=== PATIENT | male | born 1965 | race Caucasian/White ===

== ENCOUNTER 2018-04-01 11:34 | Observation (INO) | payer MEDICAID, OTHER ==
[2018-04-01] MEDS ORDERED: LORazepam INJ* 2 MG/ML 1 ML VIAL IV ONE (11:39)
--- NOTE | 2018-04-01 12:04 | RAD ---
HISTORY: new onset seizure,tachypnea, possible aspiration COMPARISONS: August 05, 2007 TECHNIQUE: Multiple contiguous axial CT scans were obtained of the head without intravenous contrast. FINDINGS: HEMORRHAGE/INFARCT: There is no hemorrhage or acute infarct. MASSES/SHIFT: There is no mass or shift. EXTRA-AXIAL SPACES: There are no extra-axial fluid collections. SULCI AND VENTRICLES: The sulci and ventricles are normal in size and position for the patient's stated age. CEREBRUM: There are no focal parenchymal abnormalities. BRAINSTEM: There are no focal parenchymal abnormalities. CEREBELLUM: There are no focal parenchymal abnormalities. VESSELS: The vessels are grossly normal. PARANASAL SINUSES: The paranasal sinuses are clear. ORBITS: The orbits are unremarkable. BONES AND SOFT TISSUE: No bone or soft tissue abnormalities are noted. OTHER: None IMPRESSION: NO ACUTE INTRACRANIAL PATHOLOGY.
--- NOTE | 2018-04-01 12:26 | RAD ---
INDICATION: No onset generalized seizure. COMPARISON: Comparison is made with a prior chest x-ray study from July 12, 2007. TECHNIQUE: AP and lateral views of the chest were obtained. FINDINGS: The heart is within normal limits in size. Mediastinal and hilar contours appear within normal limits. The lungs are underinflated. There is a linear density in the left lower lobe suggestive of subsegmental atelectasis or scarring. The lungs are otherwise clear. No pleural effusion is seen. IMPRESSION: NO EVIDENCE FOR ACTIVE CARDIOPULMONARY DISEASE.
[2018-04-01 12:28] LABS: ABS Basophils 0 10^3/ul (0-0.2); ABS Eosinophils 0 10^3/ul (0-0.6); ABS Lymphocytes 0.5 10^3/ul (1.0-4.8); ABS Monocytes 0.6 10^3/ul (0-0.8); ABS Neutrophils 10.2 10^3/ul (1.5-7.7); ABS Nucleated RBC 0 10^3/ul; Eosinophil % 0 % (0-6); Hematocrit 41 % (42-52); Hemoglobin 14.1 g/dl (14.0-18.0); Lymphocyte % 4.5 % (25-47); Mean Corpuscular HGB Conc 34 g/dl (31-36); Mean Corpuscular Hemoglobin 34 pg (27-31); Mean Corpuscular Volume 99 fL (80-94); Mean Platelet Volume 8.2 um3 (7.4-10.4); Nucleated Red Blood Cells % 0; Platelet Count 109 10^3/ul (150-450); Red Blood Count 4.13 10^6/ul (4.00-5.40); Red Cell Distribution Width 15 % (10.5-15); White Blood Count 11.3 10^3/ul (3.5-10.8)
[2018-04-01 12:37] LABS: INR 0.82 (0.77-1.02)
[2018-04-01 12:43] LABS: EGFR Non-African American 59.6 (>60)
[2018-04-01] MEDS ORDERED: NF:Umeclidin/Vilant 62.5 MDI 62.5/25 mcg 14 INH ELLIPTA DEVICE INH PRN (15:30)
[2018-04-01] MEDS ORDERED: Acetaminophen TAB* 325 MG PO PRN (15:31)
[2018-04-01] MEDS ORDERED: Thiamine IV* 100 MG/ML 2 ML VIAL IM ONE ×2 (15:31→20:00)
[2018-04-01] MEDS ORDERED: Mouth Piece, Nicotine* 1 EACH CARTRIDGE INH PRN (15:32)
[2018-04-01] MEDS ORDERED: Nicotine Inhaler* 10 MG AMP INH PRN (15:32)
[2018-04-01] MEDS ORDERED: PROCHLORPERAZINE INJ 5 MG/ML 2 ML VIAL IV PRN (15:32)
[2018-04-01] MEDS ORDERED: Albuterol/Ipratropium NEB.SOL* Albuterol 2.5 MG/Ipratropium 0.5 MG 3 ML INH PRN (15:32)
[2018-04-01] MEDS ORDERED: LORazepam TAB(*) 1 MG PO SCH (16:00)
[2018-04-01] MEDS ORDERED: LORazepam INJ* 2 MG/ML 1 ML VIAL IV SCH (16:00)
--- NOTE | 2018-04-01 17:07 | ED ---
Jana Rod Jacob, scribed for [place] HarmonyJose Ramon MD on 04/01/18 at 1205 . Neurological HPI - HPI Summary HPI Summary: Pt is a 52 y/o M brought in by EMS due to collapse and full-body seizurelasting about 2 minutes, according to neighbors. Upon arrival, EMS reports pt was alert but slightly warm and sweaty. In the room, pt states that he still feels hot. He reports feeling fine this morning and was watching TV. Pt does not recall walking across the yard. On triage, denies pain. He denies recent sickness, YOUNG, and abdominal pain. He reports not taking any medications and NKDA. In the room , pt admits to heavy regular alcohol use, deniesa any significant past medical history and has never tried to detox from alcohol. - History of Current Complaint Chief Complaint: EDSeizure Stated Complaint: SEIZURE Time Seen by Provider: 04/01/18 11:38 Hx Obtained From: Patient Onset/Duration: Sudden Onset Timing: Sudden Onset - suddenly collapsed and seized according to neighbors Number of Seizures: 1 Pain Intensity: 0 Pain Scale Used: 0-10 Numeric - 0/10 Character: Other: - Upon EMS arrival, pt was diaphoretic and warm. In room, pt reports still feeling warm but denies other symptoms. Syncope Context: Witnessed - neighbors Aggravating: Nothing Alleviating: Nothing Associated Signs and Symptoms: Positive: Memory Loss - does not recall walking across yard, Diaphoresis - upon EMS arrival - Allergy/Home Medications Allergies/Adverse Reactions: Allergies Allergy/AdvReac Type Severity Reaction Status Date / Time No Known Allergies Allergy Verified 04/01/18 11:38 Home Medications: Home Medications Umeclidin/Vilant 62.5 MDI(NF) [ANORO 62.5/25 Ellipta DEVICE (NF)] 2 aer IN QAM PRN 04/01/18 [History Confirmed 04/01/18] PMH/Surg Hx/FS Hx/Imm Hx GI History: Reports: Hx Gastroesophageal Reflux Disease History: Reports: Other Problems/Disorders - Hepatitis NOS Infectious Disease History: No Infectious Disease History: Denies: Traveled Outside the [place] in Last 30 Days - Family History Known Family History: Negative: Blood Disorder - Social History Alcohol Use: Daily Substance Use Type: Reports: Marijuana Smoking Status (MU): Current Every Day Smoker Review of Systems Positive: Skin Diaphoresis - upon EMS arrival, Other - states he feels warm Negative: Abdominal Pain Positive: Syncope - experienced full body seizure according to neighbors. Negative: Headache All Other Systems Reviewed And Are Negative: Yes Physical Exam - Summary Physical Exam Summary: Appearance: Well-appearing, Well-nourished, lying in bed comfortably Skin: Warm, dry, no obvious rash Eyes: sclera anicteric, no conjunctival pallor ENT: mucous membranes moist, pharynx appears normal Neck: Supple, nontender Respiratory: Clear to auscultation, no signs of respiratory distress Cardiovascular: Normal S1, S2. No murmurs. Normal distal pulses in tibial and radial bilaterally. Abdomen: Soft, nontender, normal active bowel sounds present Musculoskeletal: Normal, Strength/ROM Intact Neurological: A&Ox3, somewhat somnolent but easily arousable and can engage in conversation, mentation is normal, speech is fluent and appropriate. No tremor noted. Psychiatric: affect is normal, does not appear anxious or depressed Triage Information Reviewed: Yes Vital Signs On Initial Exam: Initial Vitals Temp Pulse Resp BP Pulse Ox 98.8 F 83 20 154/96 97 04/01/18 11:34 04/01/18 11:34 04/01/18 11:34 04/01/18 11:34 04/01/18 11:34 Vital Signs Reviewed: Yes - [place] Coma Scale Best Eye Response: 4 - Spontaneous Best Motor Response: 6 - Obeys Commands Best Verbal Response: 5 - Oriented Coma Scale Total: 15 Diagnostics - Vital Signs Vital Signs Temp Pulse Resp BP Pulse Ox 04/01/18 11:34 98.8 F 83 20 154/96 97 - Laboratory Lab Results: Lab Results 04/01/18 04/01/18 04/01/18 Range/Units 12:04 12:04 12:04 WBC 11.3 H (3.5-10.8) 10^3/ul RBC 4.13 (4.00-5.40) 10^6/ul Hgb 14.1 (14.0-18.0) g/dl Hct 41 L (42-52) % MCV 99 H (80-94) fL MCH 34 H (27-31) pg MCHC 34 (31-36) g/dl RDW 15 (10.5-15) % Plt Count 109 L (150-450) 10^3/ul MPV 8.2 (7.4-10.4) um3 Neut % (Auto) 90.2 H (38-83) % Lymph % (Auto) 4.5 L (25-47) % Kendall % (Auto) 5.1 (0-7) % Eos % (Auto) 0 (0-6) % Baso % (Auto) 0.2 (0-2) % Absolute Neuts (auto) 10.2 H (1.5-7.7) 10^3/ul Absolute Lymphs (auto) 0.5 L (1.0-4.8) 10^3/ul Absolute Monos (auto) 0.6 (0-0.8) 10^3/ul Absolute Eos (auto) 0 (0-0.6) 10^3/ul Absolute Basos (auto) 0 (0-0.2) 10^3/ul Absolute Nucleated RBC 0 10^3/ul Nucleated RBC % 0 INR (Anticoag Therapy) 0.82 (0.77-1.02) Sodium 138 (135-145) mmol/L Potassium 3.6 (3.5-5.0) mmol/L Chloride 101 (101-111) mmol/L Carbon Dioxide 15 L (22-32) mmol/L Anion Gap 22 H (2-11) mmol/L BUN 13 (6-24) mg/dL Creatinine 1.27 H (0.67-1.17) mg/dL Est GFR ( Amer) 72.1 (>60) Est GFR (Non-Af Amer) 59.6 (>60) BUN/Creatinine Ratio 10.2 (8-20) Glucose 152 H (70-100) mg/dL Lactic Acid (0.5-2.0) mmol/L Calcium 9.2 (8.6-10.3) mg/dL Magnesium 2.4 (1.9-2.7) mg/dL Total Bilirubin 1.30 H (0.2-1.0) mg/dL AST 38 (13-39) U/L ALT 44 (7-52) U/L Alkaline Phosphatase 68 (34-104) U/L Total Protein 7.5 (6.4-8.9) g/dL Albumin 4.2 (3.2-5.2) g/dL Globulin 3.3 (2-4) g/dL Albumin/Globulin Ratio 1.3 (1-3) Serum Alcohol < 10 (<10) mg/dL 04/01/18 Range/Units 12:04 WBC (3.5-10.8) 10^3/ul RBC (4.00-5.40) 10^6/ul Hgb (14.0-18.0) g/dl Hct (42-52) % MCV (80-94) fL MCH (27-31) pg MCHC (31-36) g/dl RDW (10.5-15) % Plt Count (150-450) 10^3/ul MPV (7.4-10.4) um3 Neut % (Auto) (38-83) % Lymph % (Auto) (25-47) % Kendall % (Auto) (0-7) % Eos % (Auto) (0-6) % Baso % (Auto) (0-2) % Absolute Neuts (auto) (1.5-7.7) 10^3/ul Absolute Lymphs (auto) (1.0-4.8) 10^3/ul Absolute Monos (auto) (0-0.8) 10^3/ul Absolute Eos (auto) (0-0.6) 10^3/ul Absolute Basos (auto) (0-0.2) 10^3/ul Absolute Nucleated RBC 10^3/ul Nucleated RBC % INR (Anticoag Therapy) (0.77-1.02) Sodium (135-145) mmol/L Potassium (3.5-5.0) mmol/L Chloride (101-111) mmol/L Carbon Dioxide (22-32) mmol/L Anion Gap (2-11) mmol/L BUN (6-24) mg/dL Creatinine (0.67-1.17) mg/dL Est GFR ( Amer) (>60) Est GFR (Non-Af Amer) (>60) BUN/Creatinine Ratio (8-20) Glucose (70-100) mg/dL Lactic Acid 10.1 H* (0.5-2.0) mmol/L Calcium (8.6-10.3) mg/dL Magnesium (1.9-2.7) mg/dL Total Bilirubin (0.2-1.0) mg/dL AST (13-39) U/L ALT (7-52) U/L Alkaline Phosphatase (34-104) U/L Total Protein (6.4-8.9) g/dL Albumin (3.2-5.2) g/dL Globulin (2-4) g/dL Albumin/Globulin Ratio (1-3) Serum Alcohol (<10) mg/dL Result Diagrams: 04/01/18 12:04 04/01/18 12:04 Lab Statement: Any lab studies that have been ordered have been reviewed, and results considered in the medical decision making process. - Radiology CXR Xray Interpretation: No Acute Changes Radiology Interpretation Completed By: Radiologist - No evidence for active cardiopulmonary disease. This report was reviewed by ED physician. - CT CT Head CT Interpretation: No Acute Changes CT Interpretation Completed By: Radiologist - No acute intracranial pathology. This report was reviewed by ED physician. - EKG 1213 Cardiac Rate: NL EKG Rhythm: Sinus Rhythm EKG Comparison: Other - NSR at 66 BPM, P waves, QRS complex, and T waves are within normal limits, T waves and intervals are normal, no ischemic changes. This is a normal EKG Re-Evaluation - Re-Evaluation First Eval Re-Evaluation Time: 15:00 Comment: discussed care of patient, will be admitted Course/Dx - Course Course Of Treatment: 52 y/o alcoholic man here after suffering first generalized tonic/clonic seizure, likely related to alcohol abuse/withdrawal. He is amenable for admission for monitored detox. Ativan given IV, further anticonvulsant at discretion of admitting physician. - Diagnoses Provider Diagnoses: Seizure, Alcoholism - Physician Notifications Instructed by Provider To: Admit As Inpatient Discharge - Sign-Out/Discharge Documenting (check all that apply): Discharge/Admit/Transfer - Discharge Plan Condition: Fair Disposition: ADMITTED TO [facility] Referrals: Jim Reid MD [Medical Doctor] - - Billing Disposition and Condition Condition: FAIR Disposition: Admitted to [facility] The documentation as recorded by the Jana noble Jacob accurately reflects the service I personally performed and the decisions made by me, Jose Ramon Barraza MD.
[2018-04-01] MEDS: LORazepam INJ* 2 MG/ML 1 ML VIAL IV SCH (18:32)
[2018-04-01] MEDS: Nicotine PATCH 21 MG/24 HR* PATCH TRANSDERM SCH (18:34)
[2018-04-01] MEDS ORDERED: Gadoteridol* (CONTRAST) 279.3 MG/ML 10 ML IV ONE (19:05)
--- NOTE | 2018-04-01 19:46 | RAD ---
INDICATION: Seizures COMPARISON: CT brain April 01, 2018 TECHNIQUE: sagittal T1 FLAIR, axial diffusion, axial T1 FLAIR, axial T2, axial T2 FLAIR, and SWI images were acquired. Additional multiplanar T1-weighted postcontrast images were acquired following the administration of 15 mL ProHance. Thin section imaging through the temporal lobes was performed as well FINDINGS: Craniocervical junction: The craniocervical junction appears normal. Ventricles/sulci: The ventricles and cisterns are normal in size and configuration for age. Brain parenchyma: There are scant, scattered T2-weighted hyperintensities likely reflecting the sequela of prior microvascular insult. There are no acute focal parenchymal abnormalities. There is no evidence of intracranial mass or mass effect. The diffusion weighted images show no evidence of acute ischemia. Intracranial hemorrhage: There is no intracranial hemorrhage. Extra-axial spaces: There are no extra-axial fluid collections or masses. Orbits: There are no MR abnormalities of the orbital structures. Paranasal sinuses/mastoid: There are findings of mild chronic pansinusitis. Mucous retention cysts or polyps are also present in the left maxillary antrum.. Vascular: No abnormalities are seen. Other: None IMPRESSION: SCATTERED T2-WEIGHTED HYPERINTENSITIES. THE EXAMINATION IS OTHERWISE UNREMARKABLE..
[2018-04-01] MEDS ORDERED: Nicotine Patch Removal NOTE FOLLOW UP SCH (21:00)
[2018-04-01] MEDS: Heparin VIAL(*) 5000 UNITS/ML VIAL (FIVE THOUSAND) SUBCUT SCH (21:05)
--- NOTE | 2018-04-01 22:56 | HP ---
CC: Dr. Nj * HISTORY AND PHYSICAL: DATE OF ADMISSION: 04/01/18 TIME OF EVALUATION: 3 p.m. PRIMARY CARE PROVIDER: The patient has no primary care provider. CONSULTING NEUROLOGIST: Dr. Nj. CHIEF COMPLAINT: "They told me I had a seizure." HISTORY OF PRESENT ILLNESS: Mr. Clements is a 52-year-old male with a past medical history of COPD, alcohol abuse, who was brought into the emergency room after sustaining a seizure. The patient states he was feeling his usual this morning. Then, he was walking to his cousin's home and the next thing, he remembers after that is EMS crew taking care of him. As per ED provider report, the patient was seen walking by a neighbor and had a witnessed seizure, so EMS was called. The patient was lethargic on arrival, but now appears to be back at his baseline. He denies headache, nausea, vomiting, dizziness, chest pain, palpitations, fever, or any other complaints. The patient states he never had a seizure before. He states that he drinks a liter of vodka a day. Last drink was yesterday. He actually had no breakfast or any alcohol today. PAST MEDICAL HISTORY: 1. Alcohol abuse. The patient states that his last stay in rehab was in October 2017 at [facility]. He was sober for a month and a half. 2. COPD. 3. Tobacco abuse. MEDICATION LIST: Anoro 62.5/25 two puffs inhaled daily as needed for shortness of breath. ALLERGIES: No known drug allergies. FAMILY HISTORY: Mother had a history of heart disease. Father of cancer, but he does not know the primary. SOCIAL HISTORY: The patient smokes a pack a day since he was 10 years old. He drinks a liter of vodka a day sometimes a couple of beers too. He smokes weed, but denies using any other drugs. Surrogate decision maker is his cousin, Vinnie Clements. Phone number is [phone]. REVIEW OF SYSTEMS: A 14-point review of systems was performed and all the pertinent negative and positive findings are in the HPI. PHYSICAL EXAMINATION GENERAL: The patient is a middle-aged gentleman, lying in the ED stretcher, in no acute distress. VITAL SIGNS: Temperature 98.8, heart rate is 69, respiratory rate is 20, oxygen saturation is 100% on room air, blood pressure is 146/94. HEENT: Pupils are equal. Moist mucous membranes. CHEST: Breath sounds bilaterally. No added sounds. CVS: Normal S1, S2. Regular rate and rhythm. ABDOMEN: Soft. Bowel sounds are present. EXTREMITIES: No edema. NEURO: He is alert and oriented x3. Able to move all 4 extremities. Face is symmetric. There are no focal neuro deficits. LABORATORY AND IMAGING DATA: The patient had a CBC that showed WBC of 11.3, hemoglobin of 14.1, MCV of 99, MCH of 34, platelet count of 109. INR is 0.82. Chemistry showed a sodium of 138, potassium of 3.6, chloride of 101, bicarb 15, anion gap of 22, BUN of 13, creatinine of 1.27, glucose of 152, lactic acid of 10.1, calcium of 9.2, magnesium of 2.4. LFTs were normal except for a total bilirubin of 1.3. Serum alcohol level is less than 10. CT of the brain without contrast showed no acute intracranial pathology. Chest x-ray showed no evidence for active cardiopulmonary disease. EKG done on 04/01/18 at 1213 showed normal sinus rhythm at 66 beats per minute with no ST-T changes and borderline QT prolongation. ASSESSMENT AND PLAN: Mr. Clements is a 52-year-old male with a past medical history of alcohol abuse, chronic obstructive pulmonary disease, tobacco abuse, who presented to the emergency room after a seizure. 1. Seizure. The patient is not showing signs of withdrawal at this time as he is not tachycardic. He is not hypertensive. He does not have any tremors, but his last drink was 24 hours ago and he had a seizure. He will be admitted to the telemetry floor. We are going to check an MRI of the brain with and without contrast with seizure protocol. He is going to have an EKG and he will be seen in consultation by Neurology (Dr. Nj). We are going to monitor him with neurological checks and he will be placed on seizure precautions. We are going to put him on lorazepam taper for seizure prophylaxis. It is unclear at this time if this seizure is related to alcohol or if this may be a primary epilepsy. 2. Chronic obstructive pulmonary disease is stable. We will continue bronchodilators. 3. Tobacco abuse. The patient will receive nicotine supplementation. 4. DVT prophylaxis. The patient has a score of 2 on the DVT Prophylaxis Risk Assessment Guide and he will be started on subcutaneous heparin. 5. Code status is full. TIME SPENT: Approximately 45 minutes were spent with the patient interview, medical records review, physical examination to complete this admission, more than half of this time was spent [id number] with the patient and coordination of care. [id number]/[facility] #: [id number] MTDD
[2018-04-02] MEDS: LORazepam INJ* 2 MG/ML 1 ML VIAL IV SCH (01:54)
[2018-04-02] MEDS: Heparin VIAL(*) 5000 UNITS/ML VIAL (FIVE THOUSAND) SUBCUT SCH (05:31)
[2018-04-02 05:50] LABS: Urine Appearance Clear; Urine Blood Negative (Negative); Urine Color Yellow; Urine Ketones Negative (Negative); Urine Protein Negative (Negative); Urine Specific Gravity 1.019 (1.010-1.030); Urine Urobilinogen Negative (Negative)
[2018-04-02 07:23] LABS: Hematocrit 39 % (42-52); Hemoglobin 13.8 g/dl (14.0-18.0); Mean Corpuscular HGB Conc 35 g/dl (31-36); Mean Corpuscular Hemoglobin 35 pg (27-31); Mean Corpuscular Volume 99 fL (80-94); Red Blood Count 3.95 10^6/ul (4.00-5.40); Red Cell Distribution Width 15 % (10.5-15); White Blood Count 6.7 10^3/ul (3.5-10.8)
[2018-04-02 07:34] LABS: EGFR Non-African American 84.3 (>60)
[2018-04-02 08:28] LABS: ABS Basophils 0 10^3/ul (0-0.2); ABS Eosinophils 0.1 10^3/ul (0-0.6); ABS Lymphocytes 1.4 10^3/ul (1.0-4.8); ABS Monocytes 0.4 10^3/ul (0-0.8); ABS Neutrophils 4.7 10^3/ul (1.5-7.7); ABS Nucleated RBC 0 10^3/ul; Lymphocyte % 21.1 % (25-47); Mean Platelet Volume 8.4 um3 (7.4-10.4); Nucleated Red Blood Cells % 0; Platelet Count 95 10^3/ul (150-450)
[2018-04-02] MEDS ORDERED: Multivitamins/Minerals TAB PO SCH (09:00)
[2018-04-02] MEDS ORDERED: Thiamine TAB* 100 MG TAB PO SCH (09:00)
[2018-04-02] MEDS ORDERED: Folic Acid TAB* 1 MG PO SCH (09:00)
[2018-04-02] MEDS ORDERED: chlordiazePOXIDE CAP* 25 MG PO ONE (09:03)
--- NOTE | 2018-04-02 09:15 | PN ---
"Progress Note - Progress Note Date of Service: 04/02/18 Note: Search Terms: kendra wheeler, 1965 Search Date: 04/02/2018 09:08:06 AM The Drug Utilization Report below displays all of the controlled substance prescriptions, if any, that your patient has filled in the last twelve months. The information displayed on this report is compiled from pharmacy submissions to the Department, and accurately reflects the information as submitted by the pharmacies. This report was requested by: Zane Disla | Reference #: [id number] There are no results for the search terms that you entered."
[2018-04-02 09:36] VITALS: BP 152/83
[2018-04-02] MEDS: Nicotine PATCH 21 MG/24 HR* PATCH TRANSDERM SCH (09:53)
[2018-04-02] MEDS ORDERED: chlordiazePOXIDE CAP* 25 MG PO SCH (14:00)
--- NOTE | 2018-04-02 22:01 | DS ---
DISCHARGE SUMMARY: DATE OF ADMISSION: DATE OF DISCHARGE: 04/02/18 HOSPITAL COURSE: This 52-year-old man presented with a seizure. He did not drink as much alcohol the day before, said it was a hot day and he did not feel like drinking. He was in his usual state of health. He walked to his cousin's home, and the next thing he remembers there was an EMS crew taking care of him. The patient had a witnessed seizure. His laboratory data were very characteristic of seizure with lactic acidosis. The metabolic acidosis resolved completely after a short period. The lactate level was not repeated. He had no further seizures in the hospital. He was given several doses of lorazepam. I notified the social work department of his problem and they should be seeing him before discharge. He was not particularly interested in treatment. I told him he need to abstain from alcohol for a period of time as he was going to be getting some medication at home. On the day of discharge, he got 50 mg of chlordiazepoxide in the morning. He was given a prescription for 25 t.i.d. 3 capsules. We will arrange for him to see a primary care provider as well. FINAL DIAGNOSES: 1. Alcohol abuse with alcohol withdrawal seizure. 2. Chronic obstructive pulmonary disease. 3. Tobacco abuse. DISCHARGE MEDICATIONS: 1. Chlordiazepoxide 25 mg t.i.d., dispensed 3. 2. Thiamine 100 mg daily. 3. Umeclidinium/vilanterol 62.5/25 two puffs daily. [id number]/[facility] #: [id number] MTDD
--- NOTE | 2018-04-03 04:37 | EEG ---
ELECTROENCEPHALOGRAPHY: DATE OF STUDY: 04/02/18 - ROOM #449 PATIENT OF: Dr. Matute. CLINICAL PROBLEM: This is a 52-year-old man being evaluated for a convulsion yesterday. Of note, the patient is alcoholic. MEDICATIONS: Include: 1. Ativan. 2. Heparin. 3. Folic acid. 4. Theragran. 5. Tylenol. REPORT: With the patient awake, background cerebral activity consists of moderate amplitude posterior dominant 9 Hz rhythm, which attenuates with eye opening and reappears with eye closure. There is some admixed beta activity noted during this tracing. The patient never falls asleep. No activation procedures are performed. No epileptiform potentials, focal abnormalities, or major asymmetries of background are noted. CLINICAL IMPRESSION: This awake EEG is within normal limits. [id number]/[facility] #: [id number] MTDD
== END 2018-04-02 11:29 | disposition home or self-care (01) ==
LOC: ED 11:34 → MEDTELE 15:27
PROVIDERS: ADMIT Internal Medicine; ATTEND Internal Medicine
DX: F10.239 Alcohol dependence with withdrawal, unspecified (principal); G40.509 Epileptic seizures related to external causes, not intractable, without status epilepticus; J44.9 Chronic obstructive pulmonary disease, unspecified; Z72.0 Tobacco use; Z79.899 Other long term (current) drug therapy
CPT/HCPCS: 36415; 70450; 70553; 71046; 80048; 80053; 80320; 81003; 83605; 83735; 85025; 85060; 85610; 93005; 95819; 96374; 96375; 99284; 99406; A9270-GY; A9579; G0378; G0480; J1644; J2060; J3411

== ENCOUNTER 2021-10-28 22:43 | Inpatient (IN) ==
[2021-10-29] MEDS ORDERED: Lorazepam PYXIS KEY PRN ×3 (01:04→05:03)
[2021-10-29 01:37] LABS: INR 1.53 (0.86-1.15)
[2021-10-29] MEDS ORDERED: LORazepam 2 mg VIAL 1 ml IV PUSH ONE ×2 (01:40→05:03)
[2021-10-29] MEDS ORDERED: Ondansetron 4 mg VIAL 2 MG/ML 2 ml VIAL IV PRN (01:40)
[2021-10-29] MEDS ORDERED: Dexamethasone IV 6 MG in NS 0.9% 50 ML 50 ML IVPB ONE (01:43)
[2021-10-29 01:44] LABS: Hematocrit 47 % (42-52); Hemoglobin 16.1 g/dL (14.0-18.0); Mean Corpuscular HGB Conc 35 g/dL (31-36); Mean Corpuscular Hemoglobin 37 pg (27-31); Mean Corpuscular Volume 107 fL (80-94); Mean Platelet Volume 8.6 fL (7.4-10.4); Platelet Count 114 10^3/uL (150-450); Red Blood Count 4.34 10^6 /uL (4.18-5.48); Red Cell Distribution Width 14 % (10-15); White Blood Count 4.1 10^3/uL (3.5-10.8)
[2021-10-29 01:50] LABS: ALT 42 U/L (7-52); AST 58 U/L (13-39); Albumin 3.2 g/dL (3.2-5.2); Albumin/Globulin Ratio 1.1 (1-3); Alkaline Phosphatase 41 U/L (35-149); Anion Gap 13 mmol/L (2-11); Blood Urea Nitrogen 25 mg/dL (6-24); C Reactive Protein 244.14 mg/L (<8.01); CO2 Carbon Dioxide 21 mmol/L (22-32); Calcium 7.8 mg/dL (8.6-10.3); Chloride 103 mmol/L (101-111); Globulin 2.9 g/dL (2-4); Glucose 148 mg/dL (70-100); Magnesium 1.4 mg/dL (1.9-2.7); Potassium 3.7 mmol/L (3.5-5.0); Sodium 137 mmol/L (135-145); Total Protein 6.1 g/dL (6.4-8.9); eGFR CKD-EPI 35.1 (>60)
[2021-10-29 01:52] LABS: Troponin I 0.01 ng/mL (<0.03)
[2021-10-29] MEDS ORDERED: D5LR 1000 ml BAG 1,000 ML IV SCH (02:00)
[2021-10-29 02:04] LABS: TSH Ultra Thyroid Stim Horm 0.33 mcIU/mL (0.34-5.60)
[2021-10-29] MEDS ORDERED: Magnesium Sulf 4 GM/100 ML IV 4,000 MG/100 ML BAG IVPB ONE (02:25)
[2021-10-29] MEDS ORDERED: Remdesivir 100 mg Vial 200 MG in NS 0.9% 250 ml 210 ML IV ONE (02:31)
[2021-10-29] MEDS ORDERED: Lactated Ringers 500 ml BAG 500 ML IV ONE (02:46)
[2021-10-29] MEDS ORDERED: Azithromycin 500 mg/250 ml NS 500 MG/250 ML BAG IVPB SCH (03:00)
[2021-10-29] MEDS ORDERED: Lactated Ringers 1000 ml BAG 1,000 ML IV SCH (03:00)
[2021-10-29 03:04] LABS: Total Bilirubin 3.7 mg/dL (0.2-1.0)
[2021-10-29 03:17] LABS: Folate > 20.00 ng/mL (5.90-24.80)
[2021-10-29 03:18] LABS: Vitamin B12 766 pg/mL (180-914)
[2021-10-29] MEDS: Albuterol HFA INHALER 8 gm MDI INH PRN (04:15)
[2021-10-29] MEDS: LORazepam 2 mg VIAL 1 ml IV PUSH PRN ×2 (04:16→09:13)
[2021-10-29] MEDS ORDERED: methylPREDNISolone 125 mg 2 ML VIAL IV ONE (04:27)
[2021-10-29] MEDS ORDERED: Piperacillin/Tazobac ADVAN 3.375 GM in NS 0.9% 100 ml BAG 100 ML IV ONE (04:28)
[2021-10-29] MEDS ORDERED: Furosemide 20 mg/2 ml IV VIAL IV ONE (04:28)
[2021-10-29] MEDS ORDERED: Zosyn per Pharmacy NOTE FOLLOW UP SCH (05:00)
[2021-10-29] MEDS: SPIRIVA Respimat (tiotropium) 2.5 mcg/inh Inhaler INH SCH ×2 (05:09→07:03)
[2021-10-29] MEDS ORDERED: Dexmedetomidine 1,000 MCG in NS 0.9% 250 ml 240 ML IV SCH ×2 (06:00→17:22)
[2021-10-29] MEDS ORDERED: Heparin 5000 UNITS/ML 1 mL VIAL SUBCUT SCH (06:00)
[2021-10-29 06:36] LABS: Urine Appearance Clear; Urine Bilirubin Negative (Negative); Urine Blood 1+ (Negative); Urine Color Yellow; Urine Glucose Negative (Negative); Urine Ketones Negative (Negative); Urine Nitrite Negative (Negative); Urine Protein Negative (Negative); Urine Specific Gravity 1.005 (1.002-1.030); Urine Urobilinogen Negative (Negative)
[2021-10-29 06:56] LABS: Calcium 7.8 mg/dL (8.6-10.3); Potassium 3.8 mmol/L (3.5-5.0); eGFR CKD-EPI 52.6 (>60)
[2021-10-29] MEDS ORDERED: Mometasone/Formoter 200/5 MDI INH SCH (07:00)
[2021-10-29 07:04] LABS: Urine Bacteria 1+ (Absent); Urine Granular Casts Present (Absent); Urine Red Blood Cell Absent (Absent); Urine White Blood Cell Trace(0-5/hpf) (Absent)
[2021-10-29 07:16] LABS: Urine Creatinine Concentration 19.44 mg/dL
[2021-10-29 07:29] LABS: Magnesium 2.7 mg/dL (1.9-2.7)
[2021-10-29] MEDS ORDERED: Enoxaparin 80 MG/0.8 ML SYR SUBCUT ONE (07:39)
[2021-10-29] MEDS: Azithromycin 500 mg/250 ml NS 500 MG/250 ML BAG IVPB SCH (09:00)
[2021-10-29] MEDS: Multivitamins/Minerals TAB PO SCH (09:14)
[2021-10-29 09:52] LABS: Macrocytosis 1+; Polychromasia 1+
[2021-10-29 09:53] LABS: Hematocrit 40 % (42-52); Hemoglobin 14.5 g/dL (14.0-18.0); Mean Corpuscular HGB Conc 36 g/dL (31-36); Mean Corpuscular Hemoglobin 39 pg (27-31); Mean Corpuscular Volume 107 fL (80-94); Mean Platelet Volume 10.1 fL (7.4-10.4); Platelet Count 190 10^3/uL (150-450); Red Blood Count 3.74 10^6 /uL (4.18-5.48); Red Cell Distribution Width 14 % (10-15); White Blood Count 4.5 10^3/uL (3.5-10.8)
[2021-10-29 10:14] LABS: ABS Lymphocytes 0.4 10^3/ul (1.0-4.8); ABS Neutrophils 1.5 10^3/ul (1.5-7.7)
[2021-10-29] MEDS ORDERED: Norepinephrine 16MCG/ML BAG NS 4,000 MCG/250 ML BAG IV ONE (10:33)
[2021-10-29] MEDS ORDERED: methylPREDNISolone SOD 40 mg/ml 1 ml VIAL IV SCH (11:00)
[2021-10-29] MEDS ORDERED: Norepinephrine 16MCG/ML BAG NS 4,000 MCG/250 ML BAG IV SCH (11:00)
[2021-10-29 11:26] LABS: Venous Bicarbonate HCO3 18.9 mmol/L (24-28)
[2021-10-29] MEDS ORDERED: Hydrocortisone INJ 100 MG/2ML 2 ML VIAL IV ONE (13:07)
[2021-10-29] MEDS: ZOSYN 3.375 GM Q8H per EXTENDED INFUSION IV SCH ×2 (13:14→21:42)
[2021-10-29] MEDS ORDERED: KCL 20 MEQ/100 ML IVPREMIX 20 MEQ/100 ML BAG IV ONE (13:16)
[2021-10-29] MEDS: Pantoprazole VIAL 40 MG VIAL IV SCH (14:09)
[2021-10-29] MEDS: Hydrocortisone INJ 100 MG/2ML 2 ML VIAL IV SCH ×2 (14:14→21:44)
[2021-10-29] MEDS: Thiamine 100 MG/ML 2 ml VIAL 500 MG in NS 0.9% 250 ml 250 ML IV SCH ×2 (14:27→22:55)
[2021-10-29] MEDS: Linezolid 600 MG IVPREMIX(*) 600 MG/300 ML BAG IVPB SCH (15:39)
[2021-10-29] MEDS ORDERED: cefTRIAXone 1 gm/50 mL NS BAG 1 GM/50 ML BAG IVPB SCH (16:00)
[2021-10-29] MEDS: Heparin 5000 UNITS/ML 1 mL VIAL SUBCUT SCH (21:43)
[2021-10-30] MEDS: Linezolid 600 MG IVPREMIX(*) 600 MG/300 ML BAG IVPB SCH ×2 (02:49→13:34)
[2021-10-30 04:07] LABS: Hematocrit 39 % (42-52); Hemoglobin 13.7 g/dL (14.0-18.0); Mean Corpuscular HGB Conc 35 g/dL (31-36); Mean Corpuscular Hemoglobin 38 pg (27-31); Mean Corpuscular Volume 108 fL (80-94); Red Cell Distribution Width 14 % (10-15); White Blood Count 8.2 10^3/uL (3.5-10.8)
[2021-10-30] MEDS: LORazepam 2 mg VIAL 1 ml IV PUSH PRN ×2 (04:08→09:06)
[2021-10-30 04:18] LABS: Magnesium 2.8 mg/dL (1.9-2.7); Phosphorus 2.6 mg/dL (2.5-5.0); Potassium 4.1 mmol/L (3.5-5.0); eGFR CKD-EPI 57.5 (>60)
[2021-10-30 04:35] LABS: Macrocytosis 1+; Polychromasia 1+
[2021-10-30 04:36] LABS: Platelet Morphology Large; Toxic Granulation 1+
[2021-10-30 04:38] LABS: ABS Lymphocytes 0.4 10^3/ul (1.0-4.8); ABS Monocytes 0.3 10^3/ul (0-0.8); ABS Neutrophils 7.4 10^3/ul (1.5-7.7); Eosinophil % 0.1 %; Lymphocyte % 4.9 %; Nucleated Red Blood Cells % 0.1; Platelet Count 105 10^3/uL (150-450)
[2021-10-30] MEDS ORDERED: LORazepam 2 mg VIAL 1 ml IV PUSH ONE (04:50)
[2021-10-30] MEDS ORDERED: Lorazepam PYXIS KEY PRN (04:50)
[2021-10-30] MEDS: ZOSYN 3.375 GM Q8H per EXTENDED INFUSION IV SCH ×3 (05:39→22:32)
[2021-10-30] MEDS: Thiamine 100 MG/ML 2 ml VIAL 500 MG in NS 0.9% 250 ml 250 ML IV SCH ×3 (06:35→22:31)
[2021-10-30] MEDS: Hydrocortisone INJ 100 MG/2ML 2 ML VIAL IV SCH ×3 (06:36→22:31)
[2021-10-30] MEDS: SPIRIVA Respimat (tiotropium) 2.5 mcg/inh Inhaler INH SCH (08:13)
[2021-10-30 08:30] LABS: ALT 59 U/L (7-52); Albumin 2.8 g/dL (3.2-5.2); Albumin/Globulin Ratio 1.1 (1-3); Alkaline Phosphatase 44 U/L (35-149); Globulin 2.6 g/dL (2-4); Total Protein 5.4 g/dL (6.4-8.9)
[2021-10-30] MEDS: Heparin 5000 UNITS/ML 1 mL VIAL SUBCUT SCH (08:34)
[2021-10-30] MEDS: Multivitamins/Minerals TAB PO SCH (08:36)
[2021-10-30] MEDS: Pantoprazole VIAL 40 MG VIAL IV SCH (08:36)
[2021-10-30 08:39] LABS: Glucose 205 mg/dL (70-100)
[2021-10-30] MEDS: Azithromycin 500 mg/250 ml NS 500 MG/250 ML BAG IVPB SCH (09:26)
[2021-10-30] MEDS ORDERED: Lactated Ringers 1000 ml BAG 1,000 ML IV SCH (10:00)
[2021-10-30] MEDS: Remdesivir 100 mg Vial 100 MG in NS 0.9% 250 ml 230 ML IV SCH (10:35)
[2021-10-30 12:38] LABS: Glucose 200 mg/dL (70-100)
[2021-10-30 13:15] LABS: PCO2 Arterial 27 mmHg (35-45); PO2 Arterial 158 mmHg (80-100)
[2021-10-30 13:43] LABS: Blood Urea Nitrogen 49 mg/dL (6-24); eGFR CKD-EPI 64.5 (>60)
[2021-10-30 14:16] LABS: ABS Lymphocytes 0.7 10^3/ul (1.0-4.8); ABS Monocytes 0.6 10^3/ul (0-0.8); ABS Neutrophils 10.3 10^3/ul (1.5-7.7); Hematocrit 39 % (42-52); Hemoglobin 13.5 g/dL (14.0-18.0); Lymphocyte % 5.9 %; Mean Corpuscular HGB Conc 35 g/dL (31-36); Mean Corpuscular Hemoglobin 37 pg (27-31); Mean Corpuscular Volume 108 fL (80-94); Mean Platelet Volume 9.6 fL (7.4-10.4); Nucleated Red Blood Cells % 0.3; Platelet Count 118 10^3/uL (150-450); Red Blood Count 3.62 10^6 /uL (4.18-5.48); Red Cell Distribution Width 14 % (10-15); White Blood Count 11.6 10^3/uL (3.5-10.8)
[2021-10-30 16:37] LABS: Troponin I 13.43 ng/mL (<0.03)
[2021-10-30] MEDS ORDERED: Dextrose 50% Syringe 50 ml 25 GM/50 ML SYRINGE IV PUSH PRN (17:37)
[2021-10-30] MEDS: Heparin DRIP 25,000 UNITS BAG 25,000 UNITS/500 ML BAG IV SCH (19:00)
[2021-10-31] MEDS: Heparin 5000 UNITS/ML 1 mL VIAL IV SCH ×2 (00:05→13:36)
[2021-10-31] MEDS: Linezolid 600 MG IVPREMIX(*) 600 MG/300 ML BAG IVPB SCH (02:45)
[2021-10-31] MEDS: ZOSYN 3.375 GM Q8H per EXTENDED INFUSION IV SCH (05:36)
[2021-10-31] MEDS: Hydrocortisone INJ 100 MG/2ML 2 ML VIAL IV SCH (06:01)
[2021-10-31] MEDS: Thiamine 100 MG/ML 2 ml VIAL 500 MG in NS 0.9% 250 ml 250 ML IV SCH ×3 (06:16→21:01)
[2021-10-31 06:41] LABS: Hematocrit 37 % (42-52); Hemoglobin 12.5 g/dL (14.0-18.0); Mean Corpuscular HGB Conc 34 g/dL (31-36); Mean Corpuscular Hemoglobin 37 pg (27-31); Mean Corpuscular Volume 108 fL (80-94); Mean Platelet Volume 9.6 fL (7.4-10.4); Platelet Count 116 10^3/uL (150-450); Red Blood Count 3.41 10^6 /uL (4.18-5.48); Red Cell Distribution Width 15 % (10-15); White Blood Count 14.6 10^3/uL (3.5-10.8)
[2021-10-31 06:48] LABS: Calcium 8.1 mg/dL (8.6-10.3); Magnesium 2.8 mg/dL (1.9-2.7); Potassium 3.8 mmol/L (3.5-5.0); eGFR CKD-EPI 65.1 (>60)
[2021-10-31] MEDS: SPIRIVA Respimat (tiotropium) 2.5 mcg/inh Inhaler INH SCH ×2 (08:19→09:03)
[2021-10-31] MEDS ORDERED: Potassium Phosphate IV 10 MMOLE in NS 0.9% 250 ml 250 ML IVPB ONE (08:30)
[2021-10-31 08:40] LABS: ABS Lymphocytes 1.1 10^3/ul (1.0-4.8); ABS Neutrophils 12.5 10^3/ul (1.5-7.7); ABS Nucleated RBC 0.1 10^3/ul; Lymphocyte % 7.7 %; Macrocytosis 2+; Nucleated Red Blood Cells % 0.5
[2021-10-31] MEDS: Multivitamins/Minerals TAB PO SCH (09:16)
[2021-10-31] MEDS: Pantoprazole VIAL 40 MG VIAL IV SCH (09:17)
[2021-10-31] MEDS: Azithromycin 500 mg/250 ml NS 500 MG/250 ML BAG IVPB SCH (11:10)
[2021-10-31] MEDS ORDERED: cefTRIAXone 1 gm/50 mL NS BAG 1 GM/50 ML BAG IVPB SCH (12:00)
[2021-10-31] MEDS: Remdesivir 100 mg Vial 100 MG in NS 0.9% 250 ml 230 ML IV SCH (13:00)
[2021-10-31] MEDS: Heparin DRIP 25,000 UNITS BAG 25,000 UNITS/500 ML BAG IV SCH (15:09)
[2021-11-01] MEDS: LORazepam 2 mg VIAL 1 ml IV PUSH PRN ×7 (00:43→20:12)
[2021-11-01] MEDS: Thiamine 100 MG/ML 2 ml VIAL 500 MG in NS 0.9% 250 ml 250 ML IV SCH ×3 (06:17→22:48)
[2021-11-01 06:58] LABS: Hematocrit 39 % (42-52); Hemoglobin 13.6 g/dL (14.0-18.0); Mean Corpuscular HGB Conc 35 g/dL (31-36); Mean Corpuscular Hemoglobin 38 pg (27-31); Mean Corpuscular Volume 108 fL (80-94); Mean Platelet Volume 9.3 fL (7.4-10.4); Platelet Count 146 10^3/uL (150-450); Red Cell Distribution Width 15 % (10-15); White Blood Count 19.8 10^3/uL (3.5-10.8)
[2021-11-01 07:10] LABS: ALT 88 U/L (7-52); Albumin 3.1 g/dL (3.2-5.2); Alkaline Phosphatase 133 U/L (35-149); Blood Urea Nitrogen 39 mg/dL (6-24); CO2 Carbon Dioxide 22 mmol/L (22-32); Calcium 8.3 mg/dL (8.6-10.3); Chloride 109 mmol/L (101-111); Glucose 147 mg/dL (70-100); Magnesium 2.6 mg/dL (1.9-2.7); Sodium 142 mmol/L (135-145); Total Protein 6.1 g/dL (6.4-8.9); eGFR CKD-EPI 77.1 (>60)
[2021-11-01 07:25] LABS: Macrocytosis 2+; Toxic Granulation 1+
[2021-11-01 07:26] LABS: ABS Lymphocytes 1.7 10^3/ul (1.0-4.8); ABS Monocytes 2.3 10^3/ul (0-0.8); ABS Neutrophils 15.8 10^3/ul (1.5-7.7); ABS Nucleated RBC 0.3 10^3/ul; Lymphocyte % 8.6 %; Nucleated Red Blood Cells % 1.4
[2021-11-01 07:31] LABS: Anion Gap 11 mmol/L (2-11)
[2021-11-01] MEDS: SPIRIVA Respimat (tiotropium) 2.5 mcg/inh Inhaler INH SCH (08:13)
[2021-11-01] MEDS: Remdesivir 100 mg Vial 100 MG in NS 0.9% 250 ml 230 ML IV SCH (08:40)
[2021-11-01] MEDS: Multivitamins/Minerals TAB PO SCH (08:41)
[2021-11-01] MEDS ORDERED: Zosyn per Pharmacy NOTE FOLLOW UP SCH (09:00)
[2021-11-01] MEDS ORDERED: Furosemide 40 mg/4 ml IV VIAL IV SCH (09:00)
[2021-11-01] MEDS: Pantoprazole VIAL 40 MG VIAL IV SCH (09:05)
[2021-11-01 09:40] LABS: CO2 Carbon Dioxide 16 mmol/L (22-32); Sodium 143 mmol/L (135-145)
[2021-11-01 09:43] LABS: Chloride 114 mmol/L (101-111)
[2021-11-01 09:44] LABS: Anion Gap 13 mmol/L (2-11)
[2021-11-01 09:46] LABS: ALT 86 U/L (7-52); Albumin/Globulin Ratio 1.2 (1-3); Alkaline Phosphatase 134 U/L (35-149); Blood Urea Nitrogen 39 mg/dL (6-24); Globulin 2.5 g/dL (2-4); Glucose 149 mg/dL (70-100); Total Protein 5.5 g/dL (6.4-8.9); eGFR CKD-EPI 91.6 (>60)
[2021-11-01 09:53] LABS: ABS Lymphocytes 1.5 10^3/ul (1.0-4.8); ABS Monocytes 1.7 10^3/ul (0-0.8); ABS Neutrophils 16.2 10^3/ul (1.5-7.7); ABS Nucleated RBC 0.2 10^3/ul; Hematocrit 38 % (42-52); Hemoglobin 13.2 g/dL (14.0-18.0); Lymphocyte % 7.5 %; Mean Corpuscular HGB Conc 35 g/dL (31-36); Mean Corpuscular Hemoglobin 37 pg (27-31); Mean Corpuscular Volume 107 fL (80-94); Mean Platelet Volume 9.6 fL (7.4-10.4); Nucleated Red Blood Cells % 1.2; Platelet Count 141 10^3/uL (150-450); Red Blood Count 3.55 10^6 /uL (4.18-5.48); Red Cell Distribution Width 14 % (10-15); White Blood Count 19.5 10^3/uL (3.5-10.8)
[2021-11-01 09:57] LABS: Troponin I 5.79 ng/mL (<0.03)
[2021-11-01 10:01] LABS: Blood Urea Nitrogen 38 mg/dL (6-24); CO2 Carbon Dioxide 19 mmol/L (22-32); Chloride 111 mmol/L (101-111); Glucose 154 mg/dL (70-100); Sodium 141 mmol/L (135-145)
[2021-11-01 10:02] LABS: ALT 85 U/L (7-52); Albumin 3.2 g/dL (3.2-5.2); Albumin/Globulin Ratio 1.1 (1-3); Alkaline Phosphatase 132 U/L (35-149); Calcium 8.4 mg/dL (8.6-10.3); Globulin 2.9 g/dL (2-4); Total Protein 6.1 g/dL (6.4-8.9); eGFR CKD-EPI 84.3 (>60)
[2021-11-01 10:08] LABS: PCO2 Arterial 31 mmHg (35-45); PO2 Arterial 81 mmHg (80-100)
[2021-11-01] MEDS ORDERED: Morphine 2 MG/ML SYRINGE IV ONE (10:16)
[2021-11-01] MEDS: ZOSYN 3.375 GM Q8H per EXTENDED INFUSION IV SCH ×2 (10:23→18:08)
[2021-11-01 10:35] LABS: Troponin I 6.17 ng/mL (<0.03)
[2021-11-01 10:37] LABS: Anion Gap 11 mmol/L (2-11)
[2021-11-01 10:46] LABS: Phosphorus 2.9 mg/dL (2.5-5.0); Potassium Redraw 3.5 mmol/L (3.5-5.0)
[2021-11-01] MEDS: Albuterol HFA INHALER 8 gm MDI INH PRN (12:29)
[2021-11-01] MEDS: Heparin DRIP 25,000 UNITS BAG 25,000 UNITS/500 ML BAG IV SCH (13:43)
[2021-11-01] MEDS ORDERED: Albuterol/Ipratropium NEB.SOL (2.5/0.5 MG) 3 ML NEB.SOLN INH PRN (16:26)
[2021-11-01] MEDS: methylPREDNISolone SOD 40 mg/ml 1 ml VIAL IV SCH (18:08)
[2021-11-02] MEDS: ZOSYN 3.375 GM Q8H per EXTENDED INFUSION IV SCH ×3 (03:30→17:27)
[2021-11-02] MEDS: methylPREDNISolone SOD 40 mg/ml 1 ml VIAL IV SCH ×2 (04:49→17:27)
[2021-11-02 05:28] LABS: Anion Gap 11 mmol/L (2-11); Blood Urea Nitrogen 34 mg/dL (6-24); CO2 Carbon Dioxide 21 mmol/L (22-32); Chloride 111 mmol/L (101-111); Glucose 141 mg/dL (70-100); Magnesium 2.2 mg/dL (1.9-2.7); Potassium 3.6 mmol/L (3.5-5.0); Sodium 143 mmol/L (135-145); eGFR CKD-EPI 96.4 (>60)
[2021-11-02 05:32] LABS: Troponin I 3.29 ng/mL (<0.03)
[2021-11-02 05:39] LABS: Hematocrit 36 % (42-52); Hemoglobin 12.6 g/dL (14.0-18.0); Mean Corpuscular HGB Conc 35 g/dL (31-36); Mean Corpuscular Hemoglobin 37 pg (27-31); Mean Corpuscular Volume 107 fL (80-94); Mean Platelet Volume 9.1 fL (7.4-10.4); Platelet Count 130 10^3/uL (150-450); Red Blood Count 3.37 10^6 /uL (4.18-5.48); Red Cell Distribution Width 15 % (10-15); White Blood Count 11.5 10^3/uL (3.5-10.8)
[2021-11-02] MEDS: Thiamine 100 MG/ML 2 ml VIAL 500 MG in NS 0.9% 250 ml 250 ML IV SCH ×3 (07:05→22:28)
[2021-11-02] MEDS: Multivitamins/Minerals TAB PO SCH (07:40)
[2021-11-02] MEDS ORDERED: Furosemide 40 mg/4 ml IV VIAL IV ONE (08:08)
[2021-11-02 08:45] LABS: Macrocytosis 1+
[2021-11-02 08:46] LABS: ABS Lymphocytes 0.9 10^3/ul (1.0-4.8); ABS Monocytes 0.9 10^3/ul (0-0.8); ABS Neutrophils 9.7 10^3/ul (1.5-7.7); ABS Nucleated RBC 0.1 10^3/ul; Nucleated Red Blood Cells % 1.1; Polychromasia 1+
[2021-11-02] MEDS: SPIRIVA Respimat (tiotropium) 2.5 mcg/inh Inhaler INH SCH (08:48)
[2021-11-02] MEDS: Pantoprazole VIAL 40 MG VIAL IV SCH (09:07)
[2021-11-02] MEDS: Remdesivir 100 mg Vial 100 MG in NS 0.9% 250 ml 230 ML IV SCH (09:18)
[2021-11-02] MEDS: Enoxaparin 40 MG/0.4 ML SYR SUBCUT SCH (11:25)
[2021-11-02] MEDS: LORazepam 2 mg VIAL 1 ml IV PUSH PRN ×2 (19:41→22:28)
[2021-11-02] MEDS ORDERED: Morphine 2 MG/ML SYRINGE IV ONE (23:16)
[2021-11-03] MEDS: ZOSYN 3.375 GM Q8H per EXTENDED INFUSION IV SCH ×3 (02:30→16:14)
[2021-11-03] MEDS ORDERED: NS 0.9% 100 ml BAG 100 ML ONE (03:01)
[2021-11-03] MEDS: methylPREDNISolone SOD 40 mg/ml 1 ml VIAL IV SCH ×2 (06:32→16:05)
[2021-11-03] MEDS: Thiamine 100 MG/ML 2 ml VIAL 500 MG in NS 0.9% 250 ml 250 ML IV SCH ×3 (06:32→22:42)
[2021-11-03] MEDS: LORazepam 2 mg VIAL 1 ml IV PUSH PRN (06:46)
[2021-11-03 07:17] LABS: Calcium 8.2 mg/dL (8.6-10.3); Magnesium 2.1 mg/dL (1.9-2.7); Potassium 3.4 mmol/L (3.5-5.0); eGFR CKD-EPI 93.9 (>60)
[2021-11-03 07:44] LABS: ABS Lymphocytes 1.3 10^3/ul (1.0-4.8); ABS Monocytes 0.9 10^3/ul (0-0.8); ABS Neutrophils 14.5 10^3/ul (1.5-7.7); ABS Nucleated RBC 0.1 10^3/ul; Eosinophil % 0.1 %; Hematocrit 37 % (42-52); Hemoglobin 12.6 g/dL (14.0-18.0); Lymphocyte % 7.8 %; Mean Corpuscular HGB Conc 34 g/dL (31-36); Mean Corpuscular Hemoglobin 37 pg (27-31); Mean Corpuscular Volume 108 fL (80-94); Mean Platelet Volume 9.5 fL (7.4-10.4); Nucleated Red Blood Cells % 0.5; Platelet Count 151 10^3/uL (150-450); Red Blood Count 3.42 10^6 /uL (4.18-5.48); Red Cell Distribution Width 15 % (10-15); White Blood Count 16.7 10^3/uL (3.5-10.8)
[2021-11-03] MEDS ORDERED: KCL 20 MEQ/100 ML IVPREMIX 20 MEQ/100 ML BAG IV ONE (08:12)
[2021-11-03] MEDS: Multivitamins/Minerals TAB PO SCH (09:13)
[2021-11-03] MEDS: Pantoprazole VIAL 40 MG VIAL IV SCH (09:13)
[2021-11-03] MEDS: Acetaminophen IV 1 GM/100ML 100 ML IV PRN (09:18)
[2021-11-03] MEDS: Enoxaparin 40 MG/0.4 ML SYR SUBCUT SCH (11:26)
[2021-11-03] MEDS ORDERED: Furosemide 40 mg/4 ml IV VIAL IV ONE (15:38)
[2021-11-03] MEDS: SPIRIVA Respimat (tiotropium) 2.5 mcg/inh Inhaler INH SCH (16:24)
[2021-11-03] MEDS: Albuterol HFA INHALER 8 gm MDI INH PRN (16:34)
[2021-11-04] MEDS: ZOSYN 3.375 GM Q8H per EXTENDED INFUSION IV SCH ×3 (02:19→18:36)
[2021-11-04] MEDS: Acetaminophen IV 1 GM/100ML 100 ML IV PRN (03:43)
[2021-11-04] MEDS: methylPREDNISolone SOD 40 mg/ml 1 ml VIAL IV SCH ×2 (05:15→18:40)
[2021-11-04 05:35] LABS: Hematocrit 36 % (42-52); Hemoglobin 12.5 g/dL (14.0-18.0); Mean Corpuscular HGB Conc 34 g/dL (31-36); Mean Corpuscular Hemoglobin 37 pg (27-31); Mean Corpuscular Volume 107 fL (80-94); Mean Platelet Volume 9.4 fL (7.4-10.4); Platelet Count 152 10^3/uL (150-450); Red Blood Count 3.41 10^6 /uL (4.18-5.48); Red Cell Distribution Width 15 % (10-15); White Blood Count 18.8 10^3/uL (3.5-10.8)
[2021-11-04 05:49] LABS: Calcium 8.5 mg/dL (8.6-10.3); Magnesium 1.8 mg/dL (1.9-2.7); Potassium 3.6 mmol/L (3.5-5.0); eGFR CKD-EPI 91.6 (>60)
[2021-11-04] MEDS: Thiamine 100 MG/ML 2 ml VIAL 500 MG in NS 0.9% 250 ml 250 ML IV SCH ×3 (05:51→22:06)
[2021-11-04] MEDS ORDERED: Magnesium Sulfate 2 gm BAG 2 GM/50 ML BAG IVPB ONE (07:16)
[2021-11-04] MEDS ORDERED: Potassium Chlor 20 meq TAB.ER PO ONE (07:16)
[2021-11-04] MEDS: SPIRIVA Respimat (tiotropium) 2.5 mcg/inh Inhaler INH SCH (08:10)
[2021-11-04] MEDS: Pantoprazole VIAL 40 MG VIAL IV SCH (08:30)
[2021-11-04] MEDS: Multivitamins/Minerals TAB PO SCH (08:31)
[2021-11-04 08:33] LABS: Macrocytosis 2+
[2021-11-04 08:34] LABS: ABS Lymphocytes 0.8 10^3/ul (1.0-4.8); ABS Monocytes 1.2 10^3/ul (0-0.8); ABS Neutrophils 16.7 10^3/ul (1.5-7.7); Lymphocyte % 4.3 %; Nucleated Red Blood Cells % 0.2
[2021-11-04 09:23] LABS: Phosphorus 3.1 mg/dL (2.5-5.0)
[2021-11-04] MEDS ORDERED: Midazolam 5 mg/5 ml VIAL 1 mg/ml 5 ml VIAL (5 mg) ONE (14:38)
[2021-11-04] MEDS ORDERED: Lidocaine 1% VIAL 10 MG/ML VIAL ONE (14:39)
[2021-11-04] MEDS ORDERED: fentaNYL 100 mcg/2 ml 50 MCG/ML VIAL ONE (14:39)
[2021-11-04] MEDS ORDERED: nitroGLYCERIN DRIP 25,000 MCG/250 ML BTL ONE (14:39)
[2021-11-04] MEDS ORDERED: Heparin 1,000 UNIT/ML 10 ml (10,000 UNITS) CATHLAB/DIALYSIS ONE (14:39)
[2021-11-04] MEDS ORDERED: niCARdipine 0.1MG/ML IVPREMIX 20 MG/200 ML BAG IV ONE (14:39)
[2021-11-04] MEDS ORDERED: Heparin 2 UNITS/ML 1000 mls 2,000 ML IV ONE (14:39)
[2021-11-04] MEDS ORDERED: Iohexol 350 (CONTRAST) 200 ML MDV IV ONE (14:39)
[2021-11-04 16:49] LABS: POC SO2 97 %
[2021-11-04 16:49] LABS: POC SO2 74 %
[2021-11-05] MEDS: ZOSYN 3.375 GM Q8H per EXTENDED INFUSION IV SCH ×2 (01:26→10:41)
[2021-11-05] MEDS: Thiamine 100 MG/ML 2 ml VIAL 500 MG in NS 0.9% 250 ml 250 ML IV SCH ×3 (05:16→21:12)
[2021-11-05] MEDS: methylPREDNISolone SOD 40 mg/ml 1 ml VIAL IV SCH ×2 (05:16→17:16)
[2021-11-05] MEDS: SPIRIVA Respimat (tiotropium) 2.5 mcg/inh Inhaler INH SCH (08:04)
[2021-11-05] MEDS: Multivitamins/Minerals TAB PO SCH (08:06)
[2021-11-05] MEDS: Pantoprazole VIAL 40 MG VIAL IV SCH (08:07)
[2021-11-05 08:21] LABS: ABS Lymphocytes 0.7 10^3/ul (1.0-4.8); ABS Monocytes 0.7 10^3/ul (0-0.8); ABS Neutrophils 18.9 10^3/ul (1.5-7.7); Hematocrit 37 % (42-52); Hemoglobin 12.6 g/dL (14.0-18.0); Lymphocyte % 3.6 %; Mean Corpuscular HGB Conc 34 g/dL (31-36); Mean Corpuscular Hemoglobin 37 pg (27-31); Mean Corpuscular Volume 108 fL (80-94); Mean Platelet Volume 9.6 fL (7.4-10.4); Platelet Count 182 10^3/uL (150-450); Red Blood Count 3.39 10^6 /uL (4.18-5.48); Red Cell Distribution Width 15 % (10-15); White Blood Count 20.3 10^3/uL (3.5-10.8)
[2021-11-05 08:36] LABS: Calcium 8.4 mg/dL (8.6-10.3); HDL Cholesterol 23.4 mg/dL; Magnesium 2.1 mg/dL (1.9-2.7); eGFR CKD-EPI 100.2 (>60)
[2021-11-05 08:50] LABS: Macrocytosis 1+; Toxic Granulation 1+
[2021-11-05] MEDS: Enoxaparin 40 MG/0.4 ML SYR SUBCUT SCH (10:42)
[2021-11-06] MEDS: Albuterol HFA INHALER 8 gm MDI INH PRN ×2 (04:56→22:59)
[2021-11-06] MEDS: methylPREDNISolone SOD 40 mg/ml 1 ml VIAL IV SCH (05:13)
[2021-11-06] MEDS: Thiamine 100 MG/ML 2 ml VIAL 500 MG in NS 0.9% 250 ml 250 ML IV SCH ×3 (05:13→22:05)
[2021-11-06] MEDS: SPIRIVA Respimat (tiotropium) 2.5 mcg/inh Inhaler INH SCH (07:25)
[2021-11-06] MEDS: Pantoprazole VIAL 40 MG VIAL IV SCH (08:30)
[2021-11-06] MEDS: Enoxaparin 40 MG/0.4 ML SYR SUBCUT SCH (08:30)
[2021-11-06] MEDS: Multivitamins/Minerals TAB PO SCH (08:30)
[2021-11-06 09:41] LABS: ABS Basophils 0.1 10^3/ul (0-0.2); ABS Lymphocytes 0.5 10^3/ul (1.0-4.8); ABS Monocytes 0.6 10^3/ul (0-0.8); ABS Neutrophils 21.8 10^3/ul (1.5-7.7); Hematocrit 36 % (42-52); Hemoglobin 12.3 g/dL (14.0-18.0); Lymphocyte % 2.1 %; Mean Corpuscular HGB Conc 34 g/dL (31-36); Mean Corpuscular Hemoglobin 36 pg (27-31); Mean Corpuscular Volume 107 fL (80-94); Mean Platelet Volume 9.4 fL (7.4-10.4); Platelet Count 198 10^3/uL (150-450); Red Blood Count 3.39 10^6 /uL (4.18-5.48); Red Cell Distribution Width 15 % (10-15)
[2021-11-07] MEDS: Thiamine 100 MG/ML 2 ml VIAL 500 MG in NS 0.9% 250 ml 250 ML IV SCH ×2 (05:00→13:29)
[2021-11-07 06:42] LABS: ABS Lymphocytes 0.4 10^3/ul (1.0-4.8); ABS Monocytes 0.6 10^3/ul (0-0.8); ABS Neutrophils 17.1 10^3/ul (1.5-7.7); Hematocrit 33 % (42-52); Hemoglobin 11.4 g/dL (14.0-18.0); Lymphocyte % 2.3 %; Mean Corpuscular HGB Conc 34 g/dL (31-36); Mean Corpuscular Hemoglobin 37 pg (27-31); Mean Corpuscular Volume 108 fL (80-94); Mean Platelet Volume 9.8 fL (7.4-10.4); Nucleated Red Blood Cells % 0.1; Platelet Count 180 10^3/uL (150-450); Red Blood Count 3.07 10^6 /uL (4.18-5.48); Red Cell Distribution Width 15 % (10-15); White Blood Count 18.1 10^3/uL (3.5-10.8)
[2021-11-07 06:49] LABS: Potassium 4.6 mmol/L (3.5-5.0)
[2021-11-07 06:50] LABS: Calcium 8.5 mg/dL (8.6-10.3); Magnesium 1.7 mg/dL (1.9-2.7); eGFR CKD-EPI 100.9 (>60)
[2021-11-07] MEDS: SPIRIVA Respimat (tiotropium) 2.5 mcg/inh Inhaler INH SCH (07:45)
[2021-11-07] MEDS: Multivitamins/Minerals TAB PO SCH (09:25)
[2021-11-07] MEDS: Enoxaparin 40 MG/0.4 ML SYR SUBCUT SCH (09:25)
[2021-11-07] MEDS: Pantoprazole VIAL 40 MG VIAL IV SCH (09:26)
[2021-11-07] MEDS: Albuterol HFA INHALER 8 gm MDI INH PRN (22:53)
[2021-11-08] MEDS: SPIRIVA Respimat (tiotropium) 2.5 mcg/inh Inhaler INH SCH (07:55)
[2021-11-08] MEDS: Albuterol HFA INHALER 8 gm MDI INH PRN (07:56)
[2021-11-08] MEDS: Enoxaparin 40 MG/0.4 ML SYR SUBCUT SCH (08:39)
[2021-11-08] MEDS: Multivitamins/Minerals TAB PO SCH (08:40)
[2021-11-08 11:40] VITALS: BP 116/70
== END 2021-11-08 15:38 | disposition home or self-care (01) | DRG 720 ==
LOC: SUATTDRO 10-29 00:28 → MED 10-29 00:28 → ICU 10-29 05:29 → MEDTELE 10-31 17:34 → ICU 11-01 16:23 → MED 11-04 18:16
PROVIDERS: ADMIT Internal Medicine; ATTEND Internal Medicine